=== PATIENT | female | born 1980 | race Two or more races ===

== ENCOUNTER 2016-10-10 01:09 | Emergency (ER) | payer MEDICAID ==
[~2016-10-10] VITALS: Ht 165.1 cm; Wt 86.2 kg
[2016-10-10 03:05] LABS: Basophils # (auto) 0 uL; Basophils % (auto) 0.3 % (0.0-2.0); Eosinophils # (auto) 0.1 uL; Eosinophils % (auto) 0.6 % (0.0-7.0); Hematocrit 38.1 % (36.0-46.0); Hemoglobin 12.8 g/dL (12.2-16.2); Lymphocytes % (auto) 23.5 % (10.0-50.0); Mean Corpuscular Hemoglobin 30.5 pg (28.0-32.0); Mean Corpuscular Hgb Conc. 33.7 g/dL (32.0-36.0); Mean Corpuscular Volume 90.6 fL (80.0-100.0); Mean Platelet Volume 8.9 fL (7.4-10.4); Monocytes # (auto) 0.4 uL; Monocytes % (auto) 4.4 % (0.0-12.0); Neutrophils % (auto) 71.2 % (37.0-80.0); Platelet Count (auto) 256 10^3/uL (140-450); Red Cell Distribution Width 14.1 % (11.6-16.0); White Blood Cell 8.4 10^3/uL (4.4-10.8)
[2016-10-10 03:23] LABS: Albumin 3.8 g/dL (3.4-5.0); BUN/Creatinine Ratio 16.9; Calcium 8.4 mg/dL (8.5-10.1); Magnesium 1.9 mg/dL (1.6-2.6); Potassium 3.3 mmol/L (3.5-5.1)
[2016-10-10 03:26] LABS: Bilirubin, Total 0.3 mg/dL (0.2-1.0); Total Protein 7.1 g/dL (6.4-8.2)
[2016-10-10 05:47] VITALS: BP 110/62
== END 2016-10-10 05:48 | disposition home or self-care (01) ==
LOC: ER 01:09 → EDBD 01:09 → ER 05:48
DX: T50.905A Adverse effect of unspecified drugs, medicaments and biological substances, initial encounter (principal); R42 Dizziness and giddiness; Z88.6 Allergy status to analgesic agent; Y92.9 Unspecified place or not applicable
CPT/HCPCS: 36415; 80053; 83735; 85025

== ENCOUNTER 2025-04-04 19:32 | Emergency (ER) | payer MEDICAID, OTHER ==
[~2025-04-04] VITALS: Ht 165.1 cm; Wt 76.7 kg
[2025-04-04 19:34] VITALS: BP 124/83; RESP 16; TEMP 98.2; O2SAT 100
[2025-04-04 19:43] VITALS: PULSE 61
[2025-04-04 20:24] LABS: Hematocrit 39.6 % (36.0-46.0); Hemoglobin 13.6 g/dL (12.2-16.2); Mean Corpuscular Hemoglobin 30.9 pg (28.0-32.0); Mean Corpuscular Volume 90.1 fL (80.0-100.0); Nucleated Red Blood Cells % 0.0 %
[2025-04-04 20:30] LABS: Alanine Aminotransferase 21 U/L (7-40); Albumin 4.6 g/dL (3.2-4.8); Alkaline Phosphatase 54 U/L (46-116); Anion Gap 10 (5-15); BUN/Creatinine Ratio 12.8 (10.0-20.0); Bilirubin, Total 0.5 mg/dL (0.2-1.0); Blood Urea Nitrogen 10 mg/dL (9-23); Calcium 9.2 mg/dL (8.7-10.4); Carbon Dioxide 29 mmol/L (20-31); Chloride 105 mmol/L (98-107); Glucose 85 mg/dL (74-106); Sodium 144 mmol/L (136-145); Total Protein 7.7 g/dL (5.7-8.2)
--- NOTE | 2025-04-04 20:42 | DVH ---
CHEST RADIOGRAPH Indication: sob Technique: 1 view Comparison: None FINDINGS: Lines and Tubes: None. Lungs/Pleura: No focal consolidation, pleural effusion or pneumothorax. Cardiomediastinum: Unremarkable. Other: No acute osseous abnormality. IMPRESSION: 1. No acute cardiopulmonary abnormality.
[2025-04-04 21:02] LABS: Potassium 3.3 mmol/L (3.5-5.1)
--- NOTE | 2025-04-05 10:19 | ECG ---
[facility] Test Date: 2025-04-04 Test Time: 19:43:26 Pat Name: SURINDER WHITE Department: Room: Gender: F Icing Mixer: STEVE : 1980 Requested By: SAMY MONTES Order Number: [id number] Reading MD: Kishor Kennedy Measurements Intervals [place] Rate: 61 P: 38 VT: 178 QRS: 43 QRSD: 119 T: 27 QT: 430 QTc: 433 Interpretive Statements Sinus rhythm Nonspecific intraventricular conduction delay Electronically Signed On 04-09-2025 13:28:31 PST by Kishor Kennedy Please click the below link to view image of tracing.
--- NOTE | 2025-04-05 11:25 | ED.PDOC ---
SOB-HPI HPI Comments 44-year-old female who presents to the ED for chief complaint of shortness of breath. Patient states that she took Ozempic off-label for weight loss and states she had an injection today at 6:00 p.m.. Patient states shortly after she started to feel short of breath, dizziness, lethargic, nausea and a burning sensation in her neck and came to the ED for further evaluation. Patient states that she has been taken Ozempic for the past three weeks. Patient states she intermittently stopped taking it last week due to having similar symptoms. Patient otherwise states that she has lost 6 lb since starting on medication. Patient in the ED otherwise denies any other symptoms. Patient otherwise has stable vitals in the ED. Past Medical history: Anxiety, asthma Past Surgical history: Gastric sleeve, tummy tuck, breast augmentation Medications: Ozempic Social history: denies EOTH, denies tobacco use, denies drug use Allergies: Morphine, ibuprofen, NSAIDs HPI: Poor Historian. REVIEW OF SYSTEMS: CONSTITUTIONAL: Denies acute: fever, diaphoresis, chills, HEAD: Denies acute: headache, photophobia Eyes: Denies acute: Double vision, vision loss, eye pain, eye discharge. EARS: Denies acute: tinnitus, hearing loss, ear discharge, ear pain, THROAT: Denies acute: sore throat, swelling, difficulty swallowing , pain with swallowing, change in voice. NECK: Denies acute: neck pain, neck swelling, stiff neck. HEART: Denies acute : chest pain, palpitations, LUNGS: Denies acute: wheezing, cough, hemoptysis ABDOMEN: Denies acute: abdominal pain, Vomiting, diarrhea, melena , hematemesis, hematochezia SKIN: Denies acute: rash, redness, lesions, itchiness. EXTREMITIES: Denies acute: calf pain, numbness, tingling, weakness, denies pain in extremity. Denies acute: Low back pain. Neuro: Denies acute: focal neurological deficit, motor or sensory focal neurological deficit, tremors, seizure like activity, confusion, change in mental status, loss of bowel or bladder function, cauda equina like symptoms. : Denies acute: dysuria, hematuria, flank pain, increase in urinary frequency. PSYCH: Denies acute: hallucination, suicidal ideation, homicidal ideation. FEMALE: Denies acute: abnormal vaginal bleeding, foul odor, unusual discharge. PHYSICAL EXAM: General: ----no----acute distress, awake and alert. Head: normocephalic, atraumatic. Neck: supple, trachea is midline, no swelling. Throat: Normal phonation. Eyes:, no erythema, no purulent discharge, no proptosis, no icterus. Heart: regular rate, regular rhythm, no significant murmur appreciated. Lungs: no apparent respiratory distress, Able to speak in full sentences. No wheezing, no rhonchi, no crackles. No stridors Clear to auscultation bilaterally. Abdomen: non tender to palpation, non distended, soft, no guarding, no rebound, + bowel sounds. Neuro: Awake, Alert, oriented to name, self, situation, follows commands GCS=15. Speech is normal. Skin: no petechia, no purpura, no cyanosis, non-pale, not jaundice. Lower extremities: --no - Pitting edema no deformity, no focal swelling, no calf TTP. Makes eye contact. moves all four extremities. Face: no apparent facial droop. Ambulating in the ED independently. ED COURSE: DISCLAIMER: This medical document was created using an electronic medical record system with voice recognition software and computerized dictation system. Although this document has been carefully reviewed, there might still be some phonetic and typographical errors. Occasional wrong-word or "sound-alike" substitutions may have occurred due to the inherent limitations of voice recognition software. These areas are purely typographical due to imperfections of the software programs and do not reflect any compromise in the patient's medical care. Please read the chart carefully and recognize, using context, where these substitutions have occurred. Chief Complaint: Shortness of Breath Time Seen by MD: 20:14 Reviewed notes: Medications, Allergies Information Source: Patient Mode of Arrival: Ambulatory Brought in by: Self Past Medical History PAST MEDICAL HISTORY: Denies Surgical History: Denies all surgeries NICKEL OPERATOR History: No Pertinent NICKEL OPERATOR History Family History Family History: No family hx of DM, No family hx of HTN Social History Smoker: Non-Smoker Alcohol: Denies ETOH Use Drugs: Denies Drug Use Lives In: Home Was a procedure done? Was a procedure done?: No Differential Dx Differential Diagnosis: Other (DDx include ACS, unstable angina, anxiety, PE, pneumothroax, neoplasm, cardiac ischemia, COPD, asthma, CHF, pleural effusion, tobacco abuse, pneumonia, hypoxia, hypercapnia, anemia., infection/sepsis., pulmonary edema. Asthma, Cardiac tamponade, infection.) X-Ray, Labs, Meds, VS Vital Signs Date Time Temp Pulse Resp B/P (MAP) Pulse Ox O2 Delivery O2 Flow Rate FiO2 04/04/25 19:43 61 04/04/25 19:34 98.2 72 16 124/83 100 98.2 Lab Test 04/04/25 20:02 Range/Units White Blood Count 6.5 4.4-10.8 10^3/uL Red Blood Count 4.40 4.0-5.20 10^6/uL Hemoglobin 13.6 12.2-16.2 g/dL Hematocrit 39.6 36.0-46.0 % Mean Corpuscular Volume 90.1 80.0-100.0 fL Mean Corpuscular Hemoglobin 30.9 28.0-32.0 pg Mean Corpuscular Hemoglobin Concent 34.3 32.0-36.0 g/dL Red Cell Distribution Width 13.2 11.8-14.3 % Platelet Count 214 140-450 10^3/uL Mean Platelet Volume 8.1 6.9-10.8 fL Neutrophils (%) (Auto) 52.6 37.0-80.0 % Lymphocytes (%) (Auto) 41.9 10.0-50.0 % Monocytes (%) (Auto) 4.4 0.0-12.0 % Eosinophils (%) (Auto) 0.7 0.0-7.0 % Basophils (%) (Auto) 0.4 0.0-2.0 % Neutrophils # (Auto) 3.4 1.6-8.6 10 ^3/uL Lymphocytes # (Auto) 2.7 0.4-5.4 10 ^3/uL Monocytes # (Auto) 0.3 0-1.3 10 ^3/uL Eosinophils # (Auto) 0 0-0.8 10 ^3/uL Basophils # (Auto) 0 0-0.2 10 ^3/uL Nucleated Red Blood Cells 0.0 % Sodium Level 144 136-145 mmol/L Potassium Level 3.3 L 3.5-5.1 mmol/L Chloride Level 105 98-107 mmol/L Carbon Dioxide Level 29 20-31 mmol/L Anion Gap 10 5-15 Blood Urea Nitrogen 10 9-23 mg/dL Creatinine 0.78 0.550-1.02 mg/dL Glomerular Filtration Rate Calc 97 >90 mL/min BUN/Creatinine Ratio 12.8 10.0-20.0 Serum Glucose 85 74-106 mg/dL Calcium Level 9.2 8.7-10.4 mg/dL Total Bilirubin 0.5 0.2-1.0 mg/dL Aspartate Amino Transferase (AST) 21 13-40 U/L Alanine Aminotransferase (ALT) 21 7-40 U/L Alkaline Phosphatase 54 46-116 U/L Troponin I High Sensitivity 3 L </=34 ng/L B-Type Natriuretic Peptide 7.38 0-100 pg/mL Total Protein 7.7 5.7-8.2 g/dL Albumin 4.6 3.2-4.8 g/dL [place] [id number] Ph: [phone] DIAGNOSTIC IMAGING Diagnostic Imaging Report : [id number] Signed PATIENT: SURINDER WHITE ACCT: [id number] UNIT: [id number] : 1980 LOC: ER ROOM / BED: / AGE / SEX: 44 / F ADM STATUS: REG ER SERVICE 50 ORDERING PHYSICIAN: SAMY MONTES DO PROCEDURE(s): CXRP - CHEST PORTABLE REASON: sob ORDER NUMBER(s): [id number], ACCESSION NUMBER(s): [id number] CHEST RADIOGRAPH Indication: sob Technique: 1 view Comparison: None FINDINGS: Lines and Tubes: None. Lungs/Pleura: No focal consolidation, pleural effusion or pneumothorax. Cardiomediastinum: Unremarkable. Other: No acute osseous abnormality. IMPRESSION: 1. No acute cardiopulmonary abnormality. ATED BY: RIANA EDUARDO MD DICTATED DATE/TIME: 04/04/252038 SIGNED BY: RIANA EDUARDO MD SIGNED DATE/TIME: 04/04/252038 CC: Time of 1ST Reevaluation: 21:00 Reevaluation 1ST: Unchanged Patient Education/Counseling: Diagnosis, Treatment Family Education/Counseling: No Family Present Comments MDM: patient presented with the above HPI.--multiple complaints likely due to Ozempic adverse effect----workup was initiated. patient was found with the above mentioned diagnosis. the following medications were ordered: please refer to order lists of meds and tests obtained by myself Dr. Montes. Patient ED course and VS have been stabilized. Patient has been reassessed in the ED and remained in a stable condition. Pertinent incidental findings were discussed with the patient and/or family. Patient/family voices understanding and is agreeable with plan. Patient has been observed in the ED adequate length of time to insure improvement/stability. Escalation of care considered: Consideration of escalation to observation or admission Patient is in no respiratory distress. Patient has no active symptoms. Patient was DISCHARGED home in a stable condition. All the reports of any imaging studies that were ordered by myself were reviewed by myself. SEPSIS Sepsis Screen Date sepsis recognized/suspect: Apr 04, 2025 Time Sepsis recognized/suspect: 1935 Recent Procedure: No On Antibiotic Therapy: No Respiratory Rate >20: No Heart Rate >90: No Temp<36 C (96.8 F) or >38.3 C: No SBP <90 or MAP <65 mmHG: No New Acute Mental Status Change: No Is the patient on CPAP, BIPAP,: No Physician Orders Biophysics Teacher (04/04/25 ) Urinalysis (04/04/25 19:50) Chest Portable (04/04/25 19:51) Vital Signs Date Time Temp Pulse Resp B/P (MAP) Pulse Ox O2 Delivery O2 Flow Rate FiO2 04/04/25 19:43 61 04/04/25 19:34 98.2 72 16 124/83 100 98.2 Laboratory Tests Test 04/04/25 20:02 White Blood Count 6.5 10^3/uL (4.4-10.8) Departure 1 Departure Time of Disposition: 22:45 Impression: Primary Impression: Adverse drug effect Disposition: 01 HOME / SELF CARE / HOMELESS Condition: Stable Additional Instructions: Additional instructions: Please read all instructions provided in this packet carefully. You MUST follow-up with your primary care/family doctor in 1 to 2 days. If you are unable to see your primary care/family doctor, please return to our emergency room for re-assessment and re-evaluation in 1 to 2 days. Return to the emergency room here in our facility or to the nearest ER [facility] if your symptoms change or worsen. CONSULTATIONS: you MUST Follow-up for consultation as soon as possible with: -pulmonology in 1-2 days. Please call for appointment You MUST call the consultants office yourself to make an appointment. You may need to arrange that through your insurance and/or your primary/family doctor. If you are unable to see the independent marketing consultant in 1 to 2 days, you must return to our emergency room (or any other ER of your choice) for re-assessment and re- evaluation. Adequate fluid hydration. Although you have been discharged from the Emergency Department, this does not mean that you have a "clean bill of health". No definitive diagnosis for your symptoms has been made today. It is possible that you are in the process of developing a serious illness. This is why you must return to the ED without fail if any new or worsening symptoms develop. Stopped using Ozempic. Discharged With: Self Critical Care Note Critical Care Time?: No I personally scribed for SAMY MONTES DO ([email or web address]) on 04/04/25 at 20:14. El ectronically submitted by Sue Luz ([email or web address]). I personally scribed for SAMY MONTES DO ([email or web address]) on 04/04/25 at 21:25. Electronically submitted by Sue Luz ([email or web address]). SMAY MONTES DO Apr 04, 2025 20:14
== END 2025-04-05 01:49 | disposition left against medical advice (07) ==
LOC: ER 19:32
DX: R06.02 Shortness of breath (principal); T50.905A Adverse effect of unspecified drugs, medicaments and biological substances, initial encounter; J45.909 Unspecified asthma, uncomplicated; F41.9 Anxiety disorder, unspecified; Z88.6 Allergy status to analgesic agent; Z88.5 Allergy status to narcotic agent; Y92.89 Other specified places as the place of occurrence of the external cause
CPT/HCPCS: 36415; 71045; 80053; 83880; 84484; 85025; 93005